=== PATIENT | male | born 1995 | race Caucasian/White ===

== ENCOUNTER 2016-06-23 22:37 | Emergency (ER) | payer OTHER ==
[~2016-06-23] VITALS: Ht 165.1 cm; Wt 92.7 kg
[~2016-06-23 22:37] MED LIST: FLUO40CA PO; IBUP-232 PO
[2016-06-24] MEDS ORDERED: FLUO40CA PO (00:23)
[2016-06-24 00:24] VITALS: BP 129/89; PULSE 102; RESP 16; TEMP 98.5; O2SAT 96
[2016-06-24] MEDS ORDERED: BROMSYP PO (00:41)
--- NOTE | 2016-06-24 01:23 | PD ---
HPI Chief Complaint: Cold / Flu Symptoms Time Seen by Provider: 01:08 Travel History International Travel<30 days: No Contact w/Intl Traveler<30days: No Traveled to known affect area: No History of Present Illness HPI The patient is a 20-year-old male who has had a cough for about 8 days. Several days ago he had a low-grade fever. The patient does have a history of bronchitis and asthma in the past. He does not smoke. He complains of some bifrontal pain and the mother running to an urgent care center on Tuesday but antibiotics were not prescribed, he was given a cough syrup. He denies any shortness of breath. He has no headache this time. The cough is productive of green sputum. PFSH Past Medical History Asthma: Yes (HAS NOT USED MEDS SINCE AGE 11) Autoimmune Disease: Yes Blood Disorders: No Anxiety: No Depression: Yes Cardiovascular Problems: No Cystic Fibrosis: No Diminished Hearing: Yes Gastrointestinal Disorders: No Genitourinary: No Musculoskeletal: No Neurologic: No Psychiatric: No Reproductive: No Respiratory: Yes (HX OF ASTHMA BUT HAS NOT USED MEDS SINCE AGE 11) Immunizations Current: Yes Sickle Cell Disease: No Sleep Apnea: No Influenza Vaccination: No PNEUMOCCOCAL Vaccine (Year): 2 Past Surgical History Abdominal Surgery: Yes (UMBILICAL HERNIA IN 2005) Appendectomy: Yes Body Medical Devices: CHILD WAS 10 DAYS EARLY, BUT 5 LBS; IN ICU X 12 DAYS; VAGINAL DELIVERY Cholecystectomy: Yes Oral Surgery: Yes (T&A) Tonsillectomy: Yes (ADENOIDS) Other Surgery: Yes (HERNIA) Social History Alcohol Use: No Tobacco Use: No Substance Use: No (Pt denies) Allergies-Medications (Allergen,Severity, Reaction): Coded Allergies: No Known Allergies (Verified , 06/24/16) Reported Meds & Prescriptions Reported Meds & Active Scripts Active Reported Bromfed DM Liq (Npkjzeopbjkznhx-Knxwtejhvwtnqgb-MI Liq) 30-2-10 Mg/5 Ml Syrp 10 Ml PO Q4-6H PRN Fluoxetine (Fluoxetine HCl) 40 Mg Cap 40 Cap PO DAILY Review of Systems Except as stated in HPI: all other systems reviewed are Neg Physical Exam Narrative GENERAL: The patient is alert, oriented 3 in no respiratory distress. His vital signs show blood pressure 129/89 with heart rate of 102 but otherwise normal. SKIN: Focused skin assessment warm/dry. HEAD: Atraumatic. Normocephalic. EYES: Pupils equal and round. No scleral icterus. No injection or drainage. ENT: No nasal bleeding or discharge. Mucous membranes pink and moist. NECK: Trachea midline. No JVD. CARDIOVASCULAR: Regular rate and rhythm. No murmur appreciated. RESPIRATORY: No accessory muscle use. Bilateral wheezes and rhonchi are heard.. Breath sounds equal bilaterally. GASTROINTESTINAL: Abdomen soft, non-tender, nondistended. Hepatic and splenic margins not palpable. MUSCULOSKELETAL: No obvious deformities. No clubbing. No cyanosis. No edema. NEUROLOGICAL: Awake and alert. No obvious cranial nerve deficits. Motor grossly within normal limits. Normal speech. PSYCHIATRIC: Appropriate mood and affect; insight and judgment normal. Data Data Last Documented VS Vital Signs Date Time Temp Pulse Resp B/P Pulse Ox O2 Delivery O2 Flow Rate FiO2 06/24/16 02:20 105 16 105/52 95 Room Air 06/24/16 00:24 98.5 Orders Influenzae A/B Antigen (06/24/16 01:19) Chest, Pa & Lat (06/24/16 01:19) Albuterol-Ipratropium Neb (Duoneb Neb) (06/24/16 01:30) Amoxicil-Clavulanate (Augmentin) (06/24/16 03:15) MDM Medical Decision Making Medical Screen Exam Complete: Yes Emergency Medical Condition: Yes Medical Record Reviewed: Yes Interpretation(s) The chest x-ray shows no acute disease. Differential Diagnosis Pneumonia, sinusitis, viral upper respiratory infection, bronchitis Narrative Course The patient has wheezes and rhonchi bilaterally but the x-ray is normal. The patient does have a bronchitis. Because of the sinus symptoms the patient says he has we will give him Augmentin. Diagnosis Primary Impression: Bronchitis Additional Impressions: Viral syndrome Sinusitis Additional Instructions: The antibiotic is one tablet twice daily for 10 days. Follow-up with your primary care physician next week. Med/Other Pt SpecificInfo: Prescription(s) given Disposition: DISCHARGE HOME Condition: Stable Dwayne Saucedo MD Jun 24, 2016 01:23
[2016-06-24] MEDS: RESP: ALBUTEROL 2.5 MG/IPRATROPIUM 0.5 MG NEB (SCH) INH (01:31)
[2016-06-24 02:20] VITALS: BP 105/52; PULSE 105; RESP 16; O2SAT 95
--- NOTE | 2016-06-24 02:26 | RADHPO ---
EXAM DATE/TIME: 06/24/2016 01:23 [facility] COMPARISON: No previous studies available for comparison. INDICATIONS : Shortness of breath, cough for 1 week MEDICAL HISTORY : None. SURGICAL HISTORY : None. ENCOUNTER: Initial ACUITY: 1 day PAIN SCORE: 0/10 LOCATION: Bilateral chest FINDINGS: PA and lateral views of the chest demonstrate the lungs to be symmetrically aerated without evidence of mass, infiltrate or effusion. The cardiomediastinal contours are unremarkable. Osseous structure s are intact. CONCLUSION: No acute disease. Cruz Ford MD on June 24, 2016 at 2:24 Board Certified Radiologist. This report was verified electronically.
[2016-06-24] MEDS ORDERED: AMOXICILLIN/CLAVULANATE K 875 MG TAB PO ONE (03:15)
[2016-06-24] MEDS ORDERED: AUGM875T PO (03:30)
== END 2016-06-24 03:51 | disposition home or self-care (01) ==
LOC: PHED 22:37
DX: J40 Bronchitis, not specified as acute or chronic (principal); B34.9 Viral infection, unspecified; J32.9 Chronic sinusitis, unspecified; F32.9 Major depressive disorder, single episode, unspecified; Z87.09 Personal history of other diseases of the respiratory system; Z79.899 Other long term (current) drug therapy
CPT/HCPCS: 71020; 87804; 94640; 94664; 99283

== ENCOUNTER 2017-07-01 22:54 | Emergency (ER) | payer OTHER ==
[~2017-07-01] VITALS: Ht 165.1 cm; Wt 97.9 kg
[~2017-07-01 22:54] MED LIST changes: -IBUP-232 PO
[2017-07-01 23:00] VITALS: RESP 20; O2SAT 97
[2017-07-01 23:01] VITALS: BP 134/74; PULSE 93; RESP 18; TEMP 97.5; O2SAT 98
[2017-07-01] MEDS ORDERED: HUMIBIDDM PO (23:21)
[2017-07-01] MEDS ORDERED: RESP: ALBUTEROL 2.5 MG/IPRATROPIUM 0.5 MG NEB (SCH) NEB ONE (23:30)
[2017-07-01 23:42] VITALS: BP 148/89; PULSE 77; RESP 16; O2SAT 98
[2017-07-01 23:58] LABS: CHLORIDE 107 MEQ/L (98-107); SODIUM (NA) 140 MEQ/L (136-145)
[2017-07-02] LABS: CALCIUM 8.8 MG/DL (8.5-10.1)
[2017-07-02 00:01] LABS: BICARBONATE 23.5 MEQ/L (21.0-32.0); BLOOD UREA NITROGEN 15 MG/DL (7-18); GLUCOSE,RANDOM 107 MG/DL (74-106); MAGNESIUM 1.9 MG/DL (1.5-2.5)
--- NOTE | 2017-07-02 00:03 | RADRPT ---
EXAM DATE/TIME: 07/01/2017 23:29 [facility] COMPARISON: No previous studies available for comparison. INDICATIONS : Short of breath and cough. MEDICAL HISTORY : Asthma. SURGICAL HISTORY : None. ENCOUNTER: Initial ACUITY: 1 day PAIN SCORE: 0/10 LOCATION: Bilateral chest FINDINGS: Single AP view of the chest. The lungs are clear. Cardiomediastinal silhouette within normal limits. No evidence of pleural effusion or pneumothorax. CONCLUSION: No acute cardiopulmonary disease identified. Nura Hector MD on July 02, 2017 at 0:00 Board Certified Radiologist. This report was verified electronically.
[2017-07-02 00:04] LABS: GLOMERULAR FILTRATION RATE 63 ML/MIN (>89)
[2017-07-02 00:09] LABS: TROPONIN I LESS THAN 0.02 NG/ML (0.02-0.05)
[2017-07-02] MEDS ORDERED: VENTAER INH (00:36)
[2017-07-02] MEDS ORDERED: MEDR4PAK PO (00:36)
--- NOTE | 2017-07-02 00:37 | PD ---
HPI Chief Complaint: Respiratory Symptoms Time Seen by Provider: 23:24 Travel History International Travel<30 days: No Contact w/Intl Traveler<30days: No Traveled to known affect area: No History of Present Illness HPI 21-year-old male presents to the emergency department by private transportation in the care of his parents for evaluation of cough 1 week. Cough has been nonproductive. Patient has history of childhood asthma and an episode of bronchitis approximately a year ago. Patient denies fever chills. Patient states symptoms began as sinus drainage but that has resolved. Patient denies any yellow-green drainage or phlegm production. Patient states he has noted some shortness of breath and chest pain associated with his cough and has noted some mild wheezing. Patient states that at times with his shortness of breath his chest feels heavy. No referred neck jaw back shoulder arm or extremity pain. No abdominal pain. No nausea or vomiting. Patient denies tobacco use. Patient has family history of dyslipidemia hypertension and atrial fibrillation his father in his 50s. No history of CAD autoimmune disorder or connective tissue disorder or clotting disorder. Patient denies other concerns or complaints. Rates his discomfort as intermittent 5-8/10 intensity with taking a deep breath or coughing. Patient denies any long-distance travel protracted bedrest surgical procedure swelling of the lower extremities personal history or family history of clotting disorder. PFSH Past Medical History Narrative Medical Anxiety depression; appendectomy cholecystectomy umbilical herniorrhaphy; no tobacco use; nursing notes reviewed Asthma: Yes (HAS NOT USED MEDS SINCE AGE 11) Autoimmune Disease: Yes Blood Disorders: No Anxiety: No Depression: Yes Cardiovascular Problems: No Cystic Fibrosis: No Diminished Hearing: Yes Gastrointestinal Disorders: No Genitourinary: No Musculoskeletal: No Neurologic: No Psychiatric: No Reproductive: No Respiratory: Yes (HX OF ASTHMA BUT HAS NOT USED MEDS SINCE AGE 11) Immunizations Current: Yes Sickle Cell Disease: No Sleep Apnea: No PNEUMOCCOCAL Vaccine (Year): 2 ?: Not Past Surgical History Abdominal Surgery: Yes (UMBILICAL HERNIA IN 2005) Appendectomy: Yes Body Medical Devices: CHILD WAS 10 DAYS EARLY, BUT 5 LBS; IN ICU X 12 DAYS; VAGINAL DELIVERY Cholecystectomy: Yes Oral Surgery: Yes (T&A) Tonsillectomy: Yes (ADENOIDS) Other Surgery: Yes (HERNIA) Social History Alcohol Use: No Tobacco Use: No Substance Use: No (Pt denies) Allergies-Medications (Allergen,Severity, Reaction): Coded Allergies: No Known Allergies (Verified , 06/24/16) Reported Meds & Prescriptions Reported Meds & Active Scripts Active Medrol Dosepak (Methylprednisolone) 4 Mg Dspk 4 Mg PO DIRECTED Per Pharmacist direction Ventolin Hfa 18 GM Inh (Albuterol Sulfate) 90 Mcg/Act Aer 2 Puff INH Q4-6H PRN Fluoxetine (Fluoxetine HCl) 40 Mg Cap 40 Cap PO DAILY Reported Mucinex DM (Dextromethorphan-Guaifenesin) 30-600 Mg Tab 1 Tab PO BID PRN Review of Systems Except as stated in HPI: all other systems reviewed are Neg Physical Exam Narrative GENERAL: Well-developed well-nourished male no acute distress no respiratory distress SKIN: Warm and dry. HEAD: Normocephalic. EYES: No scleral icterus. No injection or drainage. ENT: Mucous membranes moist airways patent no edema erythema or exudative change. Tympanic membranes no redness dullness or loss of landmarks. NECK: Supple, trachea midline. No JVD or lymphadenopathy. CARDIOVASCULAR: Regular rate and rhythm without murmurs, gallops, or rubs. RESPIRATORY: Breath sounds equal bilaterally, mildly diminished breath sounds. No accessory muscle use. GASTROINTESTINAL: Abdomen soft, non-tender, nondistended. MUSCULOSKELETAL: No cyanosis, or edema. BACK: Nontender without obvious deformity. No CVA tenderness. Data Data Last Documented VS Vital Signs Date Time Temp Pulse Resp B/P (MAP) Pulse Ox O2 Delivery O2 Flow Rate FiO2 07/01/17 23:42 77 16 148/89 (108) 98 07/01/17 23:10 Room Air 07/01/17 23:01 97.5 Orders Orders Chest, Single Ap (07/01/17 ) Basic Metabolic Panel (Bmp) (07/01/17 23:24) Troponin I (07/01/17 23:24) Magnesium (Mg) (07/01/17 23:24) D-Dimer (07/01/17 23:24) Albuterol-Ipratropium Neb (Duoneb Neb) (07/01/17 23:30) Ed Discharge Order (07/02/17 00:37) Labs Laboratory Tests Test 07/01/17 23:40 D-Dimer Quantitative (PE/DVT) 0.30 MG/L FEU Blood Urea Nitrogen 15 MG/DL Creatinine 1.40 MG/DL Random Glucose 107 MG/DL Calcium Level 8.8 MG/DL Magnesium Level 1.9 MG/DL Sodium Level 140 MEQ/L Potassium Level 3.6 MEQ/L Chloride Level 107 MEQ/L Carbon Dioxide Level 23.5 MEQ/L Anion Gap 10 MEQ/L Estimat Glomerular Filtration Rate 63 ML/MIN Troponin I LESS THAN 0.02 NG/ML MDM Medical Decision Making Medical Screen Exam Complete: Yes Emergency Medical Condition: Yes Medical Record Reviewed: Yes Interpretation(s) Last Impressions Chest X-Ray 07/01/17 0000 Signed Impressions: Service Date/Time: Saturday, July 01, 2017 23:29 - CONCLUSION: No acute cardiopulmonary disease identified. Nura Hector MD CBC & BMP Diagram 07/01/17 23:40 Calcium Level 8.8, Magnesium Level 1.9 Vital Signs Date Time Temp Pulse Resp B/P (MAP) Pulse Ox O2 Delivery O2 Flow Rate FiO2 07/01/17 23:42 77 16 148/89 (108) 98 07/01/17 23:10 20 97 Room Air 07/01/17 23:01 97.5 93 18 134/74 (94) 98 07/01/17 23:00 20 97 Differential Diagnosis Viral syndrome, sinusitis, bronchitis, pneumonia, reactive airways disease, exacerbation asthma Narrative Course EKG performed sinus rhythm rate of 83 with incomplete right bundle branch block no acute ST elevation injury pattern change noted Patient sent for imaging of the chest and basic labs obtained Patient shows evidence of renal insufficiency with creatinine of 1.4 troponin I is less than 0.02, not elevated and d-dimer is 0.30 not elevated Chest x-ray reveals no lobar infiltrate; patient given a dose of albuterol with good symptom relief and breath sounds improved Patient will be given prescription for albuterol inhaler as well as Medrol Dosepak and is stable for outpatient management. Lab values discussed with the patient and parents at bedside. Diagnosis Primary Impression: Bronchitis Additional Impression: Viral syndrome Referrals: Primary Care Physician call for appointment Patient Instructions: General Instructions Additional Instructions: Increase fluid hydration May take as tolerated as needed acetaminophen/Tylenol every 4 hours or ibuprofen /Advil/Motrin every 6-8 hours as needed for fever 100.4F or greater or for discomfort associated with inflammation Use inhaler as prescribed as needed for wheezing or shortness of breath Complete course of steroid as prescribed May use [id number] Zantac 150 twice daily while completing course of steroid taper Follow-up with your primary care provider May continue to use [id number] Mucinex for phlegm production Return to the emergency department for any concerns or change in condition Med/Other Pt SpecificInfo: Prescription(s) given Scripts Methylprednisolone Dosepak (Medrol Dosepak) 4 Mg Dspk 4 MG PO DIRECTED, #1 DSPK 0 Refills Per Pharmacist direction Prov: Rossi Vu MD 07/02/17 Albuterol 18 GM Inh (Ventolin Hfa 18 GM Inh) 90 Mcg/Act Aer 2 PUFF INH Q4-6H Y for SHORTNESS OF BREATH, #1 INHALER 0 Refills Prov: Rossi Vu MD 07/02/17 Disposition: 01 DISCHARGE HOME Condition: Stable Rossi Vu MD Jul 02, 2017 00:37
[2017-07-02 00:49] VITALS: BP 136/77
--- NOTE | 2017-07-02 14:53 | EKG ---
Date Performed: 07/01/2017 Time Performed: 23:10:36 PTAGE: 21 years EKG: Sinus rhythm INCOMPLETE RIGHT BUNDLE BRANCH BLOCK BORDERLINE ECG NO PREVIOUS TRACING DOCTOR: Navdeep Mejias Interpretating Date/Time 07/02/2017 14:53:17
== END 2017-07-02 00:51 | disposition home or self-care (01) ==
LOC: PHED 22:54
DX: J20.8 Acute bronchitis due to other specified organisms (principal); I45.10 Unspecified right bundle-branch block; J45.909 Unspecified asthma, uncomplicated; Z79.51 Long term (current) use of inhaled steroids
CPT/HCPCS: 71045; 80048; 83735; 84484; 85379; 93005; 94664; 99285